=== PATIENT | male | born 1970 | race Hispanic/Latino ===

== ENCOUNTER 2018-06-17 00:56 | Emergency (ER) | payer BC ==
[2018-06-17] MEDS ORDERED: DiphenhydrAMINE HCL 50 MG/ML VIAL ONE (01:10)
[2018-06-17] MEDS ORDERED: METHYLPREDNISOLONE SOD SUCC 125MG/2ML VIAL ONE (01:10)
[2018-06-17] MEDS ORDERED: FAMOTIDINE/PF 20 MG/2 ML VIAL IV ONE (01:11)
[2018-06-17 01:41] LABS: BASOPHILS % (AUTO) 4.1 % (0.0-5.0); EOSINOPHILS % (AUTO) 1.9 % (0.0-8.0); HEMATOCRIT 43.6 % (42-54); LYMPHOCYTES % (AUTO) 33.4 % (21.0-51.0); MEAN CORPUSCULAR HEMOGLOBIN 31.4 pg (27.0-33.0); MEAN CORPUSCULAR HGB CONC 33.6 g/dL (32.0-36.0); MEAN CORPUSCULAR VOLUME 93.5 fL (79-99); NEUTROPHILS % (AUTO) 56.6 % (40.0-77.0); NUCLEATED RED BLOOD CELLS 0.1 % (0.0-0.19); PLATELET COUNT (AUTO) 336 K/uL (130-400); RED BLOOD CELL COUNT(AUTO) 4.66 MIL/uL (4.50-6.20); RED CELL DISTRIBUTION WIDTH 13.2 % (11.0-15.5); WHITE BLOOD COUNT (AUTO) 9.7 K/uL (4.8-10.8)
[2018-06-17 02:00] LABS: CREATININE 1.3 mg/dL (0.5-1.5); POTASSIUM 3.6 mmol/L (3.5-5.1)
[2018-06-17 02:05] LABS: BILIRUBIN,TOTAL 0.3 mg/dL (0.2-1.0); TOTAL PROTEIN, SERUM 7.9 g/dL (6.0-8.3)
== END 2018-06-17 02:35 | disposition home or self-care (01) ==
LOC: EDH 00:56
DX: L50.9 Urticaria, unspecified (principal); R61 Generalized hyperhidrosis
CPT/HCPCS: 36415; 80053; 83605; 84484; 85025; 93005; 96374; 96375; 99285; J1200; J2930; J3490

== ENCOUNTER 2018-11-21 11:04 | Emergency (ER) | payer BC ==
[2018-11-21 11:34] LABS: BASOPHILS % (AUTO) 0.9 % (0.0-5.0); EOSINOPHILS % (AUTO) 2.1 % (0.0-8.0); HEMATOCRIT 44.6 % (42-54); LYMPHOCYTES % (AUTO) 27.2 % (21.0-51.0); MEAN CORPUSCULAR HEMOGLOBIN 30.6 pg (27.0-33.0); MEAN CORPUSCULAR HGB CONC 33.6 g/dL (32.0-36.0); MEAN CORPUSCULAR VOLUME 91.1 fL (79-99); MONOCYTES % (AUTO) 6.4 % (3.0-13.0); NEUTROPHILS % (AUTO) 63.4 % (40.0-77.0); PLATELET COUNT (AUTO) 271 K/uL (130-400); RED BLOOD CELL COUNT(AUTO) 4.89 MIL/uL (4.50-6.20); RED CELL DISTRIBUTION WIDTH 12.3 % (11.0-15.5); WHITE BLOOD COUNT (AUTO) 6.2 K/uL (4.8-10.8)
[2018-11-21] MEDS ORDERED: SODIUM CHLORIDE 0.9% 1000ML 2,000 ML IV ONE (11:38)
[2018-11-21 11:51] LABS: CREATININE 1.3 mg/dL (0.5-1.5)
[2018-11-21 11:55] LABS: ALBUMIN 4.4 g/dL (3.5-5.0); BILIRUBIN,DIRECT 0.1 mg/dL (0.0-0.3); BILIRUBIN,TOTAL 0.6 mg/dL (0.2-1.0); TOTAL PROTEIN, SERUM 8.6 g/dL (6.0-8.3)
[2018-11-21 12:02] LABS: BILIRUBIN,URINE Negative (NEGATIVE); COLOR,URINE Yellow (YELLOW); GLUCOSE, URINE (UA) >=1000 mg/dL (NEGATIVE); KETONES,URINE 15 mg/dL (NEGATIVE); LEUKOCYTE ESTERASE ,URINE Negative (NEGATIVE); NITRATE,URINE Negative (NEGATIVE); OCCULT BLOOD,URINE Moderate (NEGATIVE); PROTEIN,URINE POS 1+ (NEGATIVE); UROBILINOGEN,URINE 0.2 mg/dL (0.2-1.0)
[2018-11-21 12:16] LABS: APPEARANCE,URINE CLEAR (CLEAR)
[2018-11-21 12:16] LABS: ABG OXYGEN SATURATION 70.8 % (95.0-99.0); BASE EXCESS,VENOUS BLOOD GAS 0.5 (-2.0-3.0); HCO3,VENOUS BLOOD GAS 26.8 (21.0-28.0); PCO2,VENOUS BLOOD GAS 50 (35-48); PH,VENOUS BLOOD GAS 7.352 (7.350-7.450)
[2018-11-21 12:22] LABS: BACTERIA,URINE None Seen /HPF (None Seen); WBC,URINE None Seen /HPF (0-1)
[2018-11-21 12:23] LABS: SQUAMOUS EPITHELIAL CELL,UR 0-2 /HPF (0-2)
== END 2018-11-21 14:35 | disposition home or self-care (01) ==
LOC: EDH 11:04
DX: E11.65 Type 2 diabetes mellitus with hyperglycemia (principal); R63.1 Polydipsia; R63.2 Polyphagia
CPT/HCPCS: 36415; 36600; 80048; 80076; 81001; 82009; 82803; 82948; 85025; 96360; 96361; 99283; J7030

== ENCOUNTER 2019-01-26 05:31 | Day surgery (SDC) | payer BC ==
[2019-01-26] VITALS (11 sets, daily range): BP systolic 124–150; BP diastolic 73–86
[~2019-01-26] VITALS: Ht 179.1 cm; Wt 89.8 kg
[~2019-01-26 05:31] MED LIST: METF-444 PO; MULT1CAP32 PO
[2019-01-26] MEDS ORDERED: SODIUM CHLORIDE 0.9% 1000ML 1,000 ML IV ONE (05:39)
[2019-01-26] MEDS ORDERED: MIDAZOLAM HCL 1 MG/ML 2ML VIAL ONE (06:31)
[2019-01-26] MEDS ORDERED: FENTANYL CITRATE PF 50 MCG/1 ML 2ML VIAL ONE (06:31)
[2019-01-26] MEDS ORDERED: PROPOFOL 10 MG/ML 20ML VIAL IV ONE (06:31)
[2019-01-26] MEDS ORDERED: SUCCINYLCHOLINE CHLORIDE 20 MG/ML 10 ML VIAL ONE (06:32)
[2019-01-26] MEDS ORDERED: INDOMETHACIN 50 MG SUPP.RECT RC SCH (06:45)
[2019-01-26] MEDS ORDERED: PHENYLEPHRINE HCL 10 MG/ML 1ML VIAL IV ONE (07:03)
[2019-01-26] MEDS ORDERED: IOHEXOL-350 50ML VIAL IV ONE (07:16)
[2019-01-26] MEDS ORDERED: GLUCAGON 1MG KIT 1 MG ML ONE (07:56)
== END 2019-01-26 10:00 | disposition home or self-care (01) ==
LOC: ENDO 05:31 → DAH 05:31 → ENDO 10:00
PROVIDERS: ATTEND Internal Medicine
DX: C25.9 Malignant neoplasm of pancreas, unspecified (principal); K83.1 Obstruction of bile duct; I10 Essential (primary) hypertension; E78.5 Hyperlipidemia, unspecified; K29.70 Gastritis, unspecified, without bleeding; K86.89 Other specified diseases of pancreas; E11.9 Type 2 diabetes mellitus without complications; Z79.84 Long term (current) use of oral hypoglycemic drugs; Z79.899 Other long term (current) drug therapy
CPT/HCPCS: 43238; 43274; 74330; 82948 ×2; 88172; 88173; 88305; A4215; A4606; A4649; C1769 ×2; C1875; C2625; J0330; J1610; J2250; J2370; J2704; J3010; J7030; Q9967

== ENCOUNTER 2019-07-20 08:40 | Day surgery (SDC) | payer BC ==
[2019-07-20] VITALS (9 sets, daily range): BP systolic 105–155; BP diastolic 68–88
[~2019-07-20] VITALS: Ht 177.8 cm; Wt 82.6 kg
[~2019-07-20 08:40] MED LIST changes: +ETHYL ALCOHOL 5 ML VIAL IJ SCH; +SODIUM CHLORIDE 0.9% 1000ML 1,000 ML IV ONE
[2019-07-20 09:33] LABS: BASOPHILS % (AUTO) 0.7 % (0.0-5.0); EOSINOPHILS % (AUTO) 2.2 % (0.0-8.0); HEMATOCRIT 30.8 % (42-54); LYMPHOCYTES % (AUTO) 27.7 % (21.0-51.0); MEAN CORPUSCULAR HEMOGLOBIN 31.2 pg (27.0-33.0); MEAN CORPUSCULAR VOLUME 91.8 fL (79-99); MONOCYTES % (AUTO) 9.3 % (3.0-13.0); NEUTROPHILS % (AUTO) 60.1 % (40.0-77.0); PLATELET COUNT (AUTO) 121 K/uL (130-400); RED BLOOD CELL COUNT(AUTO) 3.36 MIL/uL (4.50-6.20); WHITE BLOOD COUNT (AUTO) 3.1 K/uL (4.8-10.8)
[2019-07-20 09:39] LABS: INR 1.18 (0.85-1.15); PROTHROMBIN TIME 12.1 SEC (9.6-11.6)
[2019-07-20] MEDS ORDERED: BUPIVACAINE/EPI/PF 0.25% 10ML VIAL IJ SCH (10:15)
[2019-07-20] MEDS ORDERED: PROPOFOL 10 MG/ML 20ML VIAL IV ONE ×2 (11:04)
== END 2019-07-20 12:30 | disposition home or self-care (01) ==
LOC: ENDO 08:40 → DAH 08:40 → ENDO 12:30
PROVIDERS: ATTEND Internal Medicine
DX: C25.0 Malignant neoplasm of head of pancreas (principal); K29.50 Unspecified chronic gastritis without bleeding; K31.5 Obstruction of duodenum; I10 Essential (primary) hypertension; E78.5 Hyperlipidemia, unspecified; E11.9 Type 2 diabetes mellitus without complications; Z98.890 Other specified postprocedural states; Z79.84 Long term (current) use of oral hypoglycemic drugs; Z79.899 Other long term (current) drug therapy; Z83.3 Family history of diabetes mellitus
CPT/HCPCS: 36415; 43239; 43253; 82948; 85025; 85610; 88305; A4215 ×2; A4216; A4221; A4222; A4223; A4606; A4615; A4663; J2704 ×2; J3490; J7030; 43237